=== PATIENT | female | born 1935 | race Caucasian/White ===

== ENCOUNTER 2019-01-23 05:12 | Day surgery (SDC) ==
[2019-01-16 11:06] LABS: BASO# 0.05 X1000 (0.0-0.2); BASO% 0.6 % (0.0-0.8); EOS% 4.6 % (0.0-10.0); HEMATOCRIT 38.8 % (37.0-47.0); HEMOGLOBIN 12.5 g/dL (12.0-16.0); LYMPH# 2.32 X1000 (1.2-3.4); LYMPH% 26.8 % (20.5-51.1); MCH 31.8 PG (27-31); MCHC 32.2 g/dL (33-37); MCV 98.7 FL (81-99); MONO# 0.83 X1000 (0.11-0.59); MONO% 9.6 % (1.7-9.3); MPV 10.6 FL (7.4-10.4); NEUT# 5.07 X1000 (1.4-6.5); NEUT% 58.4 % (42.2-75.2); PLT 171 X1000 (130-400); RBC 3.93 XMIL (4.2-5.4); RDW 13.2 % (11.5-14.5); WBC 8.67 X1000 (4.8-10.8)
[2019-01-16 11:38] LABS: CALCIUM 9.5 mg/dL (8.8-10.2); CREATININE 1.5 mg/dL (0.5-0.9); POTASSIUM 3.9 mmol/L (3.5-5.1)
--- NOTE | 2019-01-19 18:01 | HISTORY AND PHYSICAL ---
HISTORY: The patient is an 83-year-old with advanced stage prolapse who was initially referred to me by Dr. Barbara Live. The patient has advanced stage prolapse and has been managed with urodynamic evaluation and pessaries on 2 occasions. The patient is wishing now to proceed with surgical intervention. The risks and benefits of an obliterative procedure with mid urethral sling were explained at length. She has had urodynamic studies as well as cystoscopy confirming patency of both ureters and a decreased in detrusor function. The risks and benefits of surgery were explained at length. PAST MEDICAL HISTORY: Positive for hypertension, mixed incontinence, and stage 4 prolapse. PAST SURGERY HISTORY: Positive for appendectomy, cholecystectomy, bilateral knee replacement, bilateral cataract surgery, aortic valve replacement, left arm ORIF, carpal tunnel correction on the right, and bilateral myringotomy. PLANT ETIOLOGIST HISTORY: She is noted to be a 0. ALLERGIES: Sulfur. CURRENT MEDICATIONS: Aspirin 325, lisinopril 2.5, pravastatin 20, allopurinol 300, gabapentin 300, tramadol 50, metoprolol 25, Lasix 20, and p.r.n. medications. FAMILY HISTORY: Noncontributory. SOCIAL HISTORY: Negative for tobacco, ETOH, or drugs. PHYSICAL EXAMINATION: GENERAL: BMI is 33. HEENT: Normocephalic, atraumatic. PERRLA. EOMI. No thyromegaly. CV: Regular rate and rhythm without murmur, gallop, rub. PULMONARY: Clear to auscultation and percussion. ABDOMEN: Soft. : Shows stage 4 prolapse based on total vaginal length. Point C is -1. Point D is -2. TBL is 10. BA is the leading edge at +5. Her distal posterior measurements are negative. NEUROLOGIC: Afocal. EXTREMITIES: Without clubbing, cyanosis, or edema. ASSESSMENT AND PLAN: Patient with advanced stage prolapse who needs to have a frozen D C and LeFort colpocleisis and mid urethral sling to help her surgically with her advanced stage prolapse. The risks and benefits were discussed at length. cc: Ramon Haines MD
[2019-01-23] MEDS ORDERED: LR 1,000 ML ONE (05:35)
[2019-01-23] MEDS ORDERED: KEFZOL 1 GM/D5W 2 GM/100 ML IVPB ONE (05:35)
[2019-01-23] MEDS ORDERED: FENTANYL ONE (05:54)
[2019-01-23] MEDS ORDERED: SODIUM CHLORIDE 0.9% ONE (06:31)
[2019-01-23] MEDS ORDERED: METROGEL-VAGINAL 0.75% GEL ONE (06:31)
[2019-01-23] MEDS ORDERED: SENSORCAINE 0.25%/EPI 1:200,000 ONE (06:31)
[2019-01-23] MEDS ORDERED: D10W 500 ML ONE (06:32)
--- NOTE | 2019-01-23 06:48 | H&P REVIEW ---
H&P Update H&P Review: H&P was reviewed and patient was examined, No change has occurred in the patient's condition
[2019-01-23] MEDS ORDERED: AMIDATE ONE (07:45)
[2019-01-23] MEDS ORDERED: DECADRON ONE (07:45)
[2019-01-23] MEDS ORDERED: ZOFRAN ONE (07:45)
[2019-01-23] MEDS ORDERED: XYLOCAINE-MPF 2% ONE (07:46)
[2019-01-23 08:50] LABS: URINE SOURCE CATH
[2019-01-23 08:55] LABS: BILIRUBIN URINE NEGATIVE (NEGATIVE); BLOOD URINE SMALL (NEGATIVE); COLOR STRAW; GLUCOSE URINE >1000 mg/dL (NEGATIVE); KETONE URINE NEGATIVE (NEGATIVE); LEUKOCYTES URINE NEGATIVE (NEGATIVE); NITRITE URINE NEGATIVE (NEGATIVE); PROTEIN URINE NEGATIVE (NEGATIVE); SP GRAVITY URINE 1.025; TURBIDITY URINE CLEAR (CLEAR); UROBILINOGEN URINE NORMAL (NORMAL)
[2019-01-23 08:56] LABS: UR EPITHELIAL CELLS <10 /HPF (<10); URINE BACTERIA NEGATIVE /HPF; URINE WBC <10 /HPF (<10)
--- NOTE | 2019-01-23 09:05 | OPERATIVE NOTE ---
PROCEDURE DATE: 01/23/2019 PREOPERATIVE DIAGNOSIS: POP-Q stage IV prolapse. POSTOPERATIVE DIAGNOSIS: POP-Q stage IV prolapse. PROCEDURE: Dilation and curettage, LeFort colpocleisis, mid urethral sling with Obtryx. SURGEON: Dr. Brandon Haines ANESTHESIA: General. ESTIMATED BLOOD LOSS: 50 mL. HISTORY: The patient is an 83-year-old female who has been followed by Dr. Barbara Live in the [facility], who has been managed conservatively with pessaries on several occasions but is having advancing stage prolapse with recurrent UTIs. We discussed surgical intervention. She has decided not to proceed any further with pessary management and is wishing to proceed with an obliterative procedure. The risks and benefits of colpocleisis were explained at length. She understands and is wishing to proceed. OPERATIVE FINDINGS: Consistent with POP-Q stage IV prolapse. Normal bladder after completion of the procedure with efflux of urine from both ureteral orifices. OPERATIVE PROCEDURE: The patient taken to operating room and placed in supine position. After adequate general anesthesia was obtained, she was placed in candy-cane stirrups, and vagina and perineum were prepped and draped in the usual fashion. A single-tooth tenaculum was utilized to grasp what little bit of cervix could be visualized away from the vaginal mucosa. There was a pinpoint area that could be visualized, and we used dilators to dilate this up to approximately 2 cm. Upon doing this, we placed Telfa in the posterior fourchette and then used sharp curettage. The uterus was noted to be very small, approximately 4 cm in size based on the depth of the scraping. Very little product was obtained. It was collected on the Telfa and sent to pathology for frozen section. I was suspicious it was going to be atrophic. Intraoperatively, the frozen section returned as atrophic. After completion of the D and C, we removed the single-tooth tenaculum and placed an Allis on the cervical stump for identification. We then began with our anterior dissection by initially performing a hydrodissection. We then used a scalpel to dissect out a flap of vaginal mucosa that was just proximal of the urethrovesical neck and extended all the way down to the cervical stump. Approximately a 1 cm tunnel was left on the right hand and left hand side. We then went to the posterior wall and did the same exact thing with an initial hydrodissection. We started just proximal of the hymenal ring and then continued up to the cervical stump in the posterior compartment. Because of the large rectocele that was present and the large enterocele, we plicated across the midline with interrupted 0 Vicryl ligatures, and then we continued with our imbrication for the typical obliterative procedure using the 0 Vicryl to imbricate the anterior portion of the cervix to the posterior portion. When we got into the viscus region, we used 2-0 Vicryl ligature to continue with our securing anterior to posterior. We used 0 Vicryl ligature at the vaginal mucosa edges, and there was approximately a 1 cm tunnel left for any type of blood drainage in this area. As we had imbrication of the cervix and the tissue, we got to the level of our distal dissection, and we then closed this with interrupted [id number] sutures using a 0 Vicryl ligature. Vaginal depth was approximately 3 cm at this point from the hymenal ring. We then turned our attention towards placement of the sling. The urethra was grasped proximally and distally with Allis clamps, and a sagittal incision was made. Dissection was performed up towards the ischial pubic ramus on each side. Based on the bony landmarks of the ramus as well as the insertion of the adductor longus, a stab incision was made initially on the left-hand side. The halo device was introduced through this incision through the obturator foramen into the tower excavator operator's finger, which directed the needle out. This was performed on the contralateral side in a similar fashion. The bladder was drained of all fluids at this time and then refilled with D10. Both ureters were effluxing urine. There was no evidence of any mucosal abnormalities. Cystoscope was removed, and a Pina clamp was placed in the mid urethral position. The tape was brought up with the Pina clamp. Blue tag was excised. The sheaths were easily removed. There was no tension on the mesh whatsoever. The mid urethral incision was closed with a running locking 2-0 Vicryl ligature. Currie catheter was replaced. Sponge count, instrument count, needle counts correct x3. Packs and drains were Currie. The patient was taken out of the [facility], awakened and taken to the recovery room with vital signs stable. cc: Ramon Haines MD
[2019-01-23] MEDS ORDERED: ZOFRAN ODT PO PRN (09:18)
[2019-01-23] MEDS ORDERED: ULTRACET 37.5MG/325MG PO PRN (09:18)
[2019-01-23] MEDS: COLACE PO SCH ×2 (12:22→20:29)
[2019-01-23] MEDS: PRAVACHOL PO SCH (12:22)
[2019-01-23] MEDS: LASIX PO SCH (12:23)
[2019-01-23] MEDS: ZYLOPRIM PO SCH (12:23)
[2019-01-23] MEDS: NEURONTIN PO SCH (12:23)
[2019-01-23] MEDS: PERIDEX MT SCH ×3 (12:23→21:09)
[2019-01-23] MEDS: PRINIVIL PO SCH (12:23)
[2019-01-23] MEDS: TORADOL IV SCH ×2 (12:24→19:01)
--- NOTE | 2019-01-23 17:43 | PROGRESS NOTE ---
DATE: 01/23/2019 TIME: Approximately 5:30 p.m. SUBJECTIVE: Patient is doing quite well, is not having a lot of pain. OBJECTIVE: Her vital signs are stable, but her heart rate is somewhat depressed at 49. This could be related to anesthesia. Urine output is adequate. ASSESSMENT/PLAN: Routine postoperative care through the evening, voiding trial in the morning. We will plan on discharge home if normal voiding trial. cc: Ramon Haines MD
[2019-01-24] MEDS: TORADOL IV SCH ×2 (00:51→06:10)
[2019-01-24] MEDS: LR 1,000 ML IV SCH ×2 (04:58→06:14)
[2019-01-24] MEDS: PRAVACHOL PO SCH (09:27)
[2019-01-24] MEDS: PRINIVIL PO SCH (09:27)
[2019-01-24] MEDS: LASIX PO SCH (09:27)
[2019-01-24] MEDS: NEURONTIN PO SCH (09:27)
[2019-01-24] MEDS: ZYLOPRIM PO SCH (09:27)
[2019-01-24] MEDS: COLACE PO SCH (09:27)
[2019-01-24] MEDS: PERIDEX MT SCH ×2 (09:28→09:30)
--- NOTE | 2019-01-24 10:29 | DISCHARGE SUMMARY ---
ADMISSION DATE: 01/23/2019 DISCHARGE DATE: 01/24/2019 PRINCIPAL DIAGNOSIS: Pelvic organ prolapse. PROCEDURE: 1. Dilatation and curettage. 2. LeFort colpocleisis. 3. Midurethral sling with Obtryx. HISTORY: The patient is an 83-year-old female who has been having increasing problems with pelvic organ prolapse. She was admitted for surgical correction. The patient underwent the above-stated procedure. Blood loss at that time was approximately 30 mL. Her postoperative course has been uncomplicated. She is currently undergoing voiding trial, and will be discharged home with instructions for followup in 3 weeks. DISCHARGE MEDICATIONS: Colace and tramadol. DISCHARGE INSTRUCTIONS: She was instructed a regular diet and decreased activity. cc: Ramon Haines MD [id number]
[2019-01-24 11:45] VITALS: BP 117/49
== END 2019-01-24 14:20 | disposition home or self-care (01) ==
LOC: OR 05:12 → DIRADM 09:14 → 4N 09:14 → INTOOBSV 09:14 → OR 01-24 14:20
PROVIDERS: ATTEND Obstetrics & Gynecology